=== PATIENT | female | born 1965 | race Caucasian/White ===

== ENCOUNTER 2016-12-18 23:21 | Emergency (ER) | payer SELFPAY ==
[~2016-12-18] VITALS: Ht 160 cm; Wt 63.5 kg
--- NOTE | ~2016-12-18 | CR142 ---
[facility] A Service of [facility] & [facility] RADIOLOGY TEXT RESULTS PATIENT: COURTNEY RIZO LOCATION: [facility] : 67 UNIT #: [id number] AGE: [address]: Radha Oro MD SEX: F ORDER DR: [id number] [facility] [address] [place], [place] [address] [id number] MR#: [id number] Acc #: [id number] NAME: COURTNEY RIZO : 1965 SEX: F STUDY DATE/TIME: 12/19/2016 0:32 UNIT: [facility] ROOM: STUDY DESCRIPTION: CR Hand Min 3 Views Rt Attending Physician: Radha Oro M.D. Ordering Physician: Radha Oro M.D. Primary Care Physician: Jeff Horn M.D. MEDICAL IMAGING REPORT This report is preliminary unless electronic signature is present EXAM Right hand series INDICATIONS Right hand pain for the past 2 days. PROCEDURE Three views of the right hand COMPARISON None FINDINGS No acute fracture or dislocation. IMPRESSION No acute findings. Dictated by... Cesar Bentley M.D. THIS IS AN ELECTRONICALLY VERIFIED REPORT Cesar Bentley M.D. at 12/19/2016 9:54 PM EED/psc TD: 12/19/2016 11:18 JOB #: [id number] MEDICAL IMAGING REPORT Page 1 of 1 COPY
[~2016-12-18 23:21] MED LIST: DOXYCYCLINE150 MG PO; LORTAB 5/500 TA1 TA1 PO
== END 2016-12-19 02:09 | disposition home or self-care (01) ==
LOC: CED 23:21
DX: M25.541 Pain in joints of right hand (principal)
CPT/HCPCS: 73130; 99283